=== PATIENT | female | born 1955 | race Caucasian/White ===

== ENCOUNTER 2019-02-19 13:06 | Observation (INO) ==
[2019-02-19] MEDS ORDERED: Isovue-370 500 ML BOTTLE IVP ONE (13:41)
--- NOTE | 2019-02-19 13:52 | Emergency Department Note ---
Disposition Clinical Impression: Rectal bleeding Disposition: Admitted As Inpatient Condition: Good Instructions: Rectal Bleeding (ED) Reasons to Return/Additional Instructions: You have an inflammation of the colon that is causing you to have rectal bleeding. He also had pain from her recent D/C and hysteroscopy. Your blood levels were not low enough to warrant transfusion. CT scans were performed to evaluate this. I spoke with the CUSTOMER SERVICE ADVISOR who does not think the bleeding is caused by the recent procedure. Please make a follow-up appointment for colonoscopy as soon as possible. I provided a prescription for a steroid as well as antibiotic. If you are unable to take your medications orally or unable to eat or drink please return the emergency Department please also return the emergency Department immediately if you develop worsening symptoms. Referrals: Zander Agustin DO [Primary Care Provider] - Forms: ED Satisfaction Letter Time of Disposition: 17:00 General Adult HPI - General Chief complaint: ED GI Bleed Stated complaint: rectal bleed Time Seen by Provider: 02/19/19 13:15 Source: patient Limitations: no limitations - History of Present Illness HPI Narrative: Patient is 63-year-old female history of hypertension, thyroid cancer, recent D&C hysteroscopy present in the emergency department with complaint of "rectal blood". Patient states that last night she had difficulty going to the bathroom and had to strain multiple times. The patient states eventually stool released which was followed by diarrhea and then followed by a significant amount of bright red blood. She states throughout the night she continued to have bright red blood per rectum when using the bathroom. She complains of crampy abdominal pain during this time. Patient states she had a D&C Hysteroscopy on 02/14/[address] Jimenez. Patient admits to fatigue, crampy abdominal pain and feels distended. Patient had no urinary complaints. Patient denies chest pain, shortness of breath, nausea, vomiting, headache, vision changes. Pain Scale: 5 - Related Data Home Medications Medication Instructions Recorded Confirmed ALPRAZolam [Xanax 0.5 MG Tablet] 0.5 mg PO BID PRN 09/03/15 02/19/19 Acyclovir [Zovirax] 400 mg PO BID 09/03/15 02/19/19 Calcium/Magnesium/Zinc 1 each PO QPM 09/03/15 02/19/19 [Ysjcauf-Asalgytev-Ogpy Tab] Estradiol [Estrace] 0.5 mg PO DAILY 09/03/15 02/19/19 Levothyroxine Sodium [Synthroid] 137 mcg PO QAM 09/03/15 02/19/19 Lisinopril [Zestril] 10 mg PO QPM 09/03/15 02/19/19 Omeprazole [PriLOSEC] 20 mg PO HS 09/03/15 02/19/19 Acetaminophen [Tylenol Arthritis] 1,300 mg PO Q8H PRN 02/14/19 02/19/19 Aspirin [Lo-Dose Aspirin EC] 81 mg PO DAILY 02/14/19 02/19/19 Calcitriol 0.5 mg PO DAILY 02/14/19 02/19/19 Cetirizine HCl [Allergy Relief] 10 mg PO DAILY 02/14/19 02/19/19 Inulin [Fiber Gummies] 2 gm PO DAILY 02/14/19 02/19/19 Loperamide [Imodium] 2 mg PO BID PRN 02/14/19 02/19/19 Medroxyprogesterone Acetate 10 mg PO QAM 02/14/19 02/19/19 [Provera] Tizanidine HCl 2 - 4 mg PO HS PRN 02/14/19 02/19/19 Trazodone HCl 100 mg PO HS 02/14/19 02/19/19 Previous Rx's Medication Instructions Recorded Ibuprofen [Motrin] 800 mg PO Q8HR PRN #30 tablet 02/14/19 Allergies Allergy/AdvReac Type Severity Reaction Status Date / Time codeine Allergy Gastrointestinal Verified 02/19/19 13:09 Upset acetaminophen [From Roxicet] AdvReac Nausea Verified 02/19/19 13:09 ciprofloxacin [From Cipro] AdvReac Hives Verified 02/19/19 13:09 citalopram AdvReac Headache Verified 02/19/19 13:09 clindamycin AdvReac Hives Verified 02/19/19 13:09 loratadine [From Claritin] AdvReac See Verified 02/19/19 13:09 Comments oxycodone [From Roxicet] AdvReac Gastrointestinal Verified 02/19/19 13:09 Upset Penicillins [PCN] AdvReac Hives Verified 02/19/19 13:09 pregabalin [From Lyrica] AdvReac Nausea Verified 02/19/19 13:09 tetracycline [Tetracycline] AdvReac Gastrointestinal Verified 02/19/19 13:09 Upset tramadol [From Ultracet] AdvReac Gastrointestinal Verified 02/19/19 13:09 Upset SURGICAL TAPE Allergy See Uncoded 02/19/19 13:09 Comments All systems ED: reviewed and negative except as stated. Review of Systems: As Per HPI Constitutional: Denies: fever, chills Eyes: Denies: eye pain, eye discharge ENT ED: Denies: ear pain, throat pain Cardiovascular: Denies: chest pain, palpitations, dyspnea on exertion Respiratory: Denies: cough, dyspnea, wheezes Gastrointestinal: Reports: abdominal pain, hematochezia. Denies: nausea Genitourinary: Denies: urgency, dysuria, frequency Musculoskeletal: Denies: back pain, neck pain Integumentary: Denies: rash, abrasion Neurological: Denies: headache, weakness Psychiatric: Denies: anxiety, depression Past Medical History - Past Medical History Attestation: Yes The following information was validated with the patient. Source: patient Medical history: Reports: cancer, GERD, hypertension Surgical history: Reports: appendectomy, other Psychiatric history: Reports: anxiety - Social History Smoking Status: Never smoker Smokeless Tobacco Status: No Alcohol use: Reports: none Drug use: Reports: none Physical Exam - General Limitations: no limitations General appearance: alert - Head Head exam: atraumatic, normocephalic - Eye Eye exam: Present: normal appearance, PERRL, EOMI. Absent: scleral icterus - ENT ENT exam: normal exam, normal oropharynx, mucous membranes moist - Neck Neck exam: Present: normal inspection, full ROM, trachea midline - Chest Chest inspection: Present: normal inspection, symmetric chest wall rise. Absent: tenderness - Respiratory Respiratory exam: Present: normal lung sounds bilaterally. Absent: respiratory distress, wheezes - Cardiovascular Cardiovascular exam: Present: regular rate, normal rhythm, normal heart sounds - Abdominal Exam Abdominal exam: Present: soft, tenderness Abdominal tenderness: Present: suprapubic, mild - Rectal Exam Alumni Secretary present during exam: Yes (Erika Phillips) Rectal exam: Present: normal inspection, normal rectal tone, heme (+) stool, bloody stool - Extremities Exam Extremities exam: Present: normal inspection - Back Exam Back exam: Absent: tenderness - Neurological Exam Neurological exam: Present: alert, oriented X3 - Psychiatric Psychiatric exam: Present: normal affect, normal mood - Skin Skin exam: Present: warm, dry Course Vital Signs Temperature 98.4 F 02/19/19 13:12 Pulse Rate 77 02/19/19 13:12 Respiratory Rate 15 02/19/19 13:12 Blood Pressure 122/74 02/19/19 13:12 O2 Sat by Pulse Oximetry 99 02/19/19 13:12 Temperature 98.4 F 02/19/19 13:12 Pulse Rate 83 02/19/19 20:30 Respiratory Rate 20 02/19/19 20:30 Blood Pressure 127/51 02/19/19 20:30 O2 Sat by Pulse Oximetry 97 02/19/19 20:30 Oxygen Delivery Oxygen Delivery Room Air Medical Decision Making - MDM Narrative Medical decision making narrative: 63-year-old female presents with rectal bleeding after a heavy bowel movement the night prior. Digital rectal exam was positive for blood. Lab evaluation and CT scans of the abdomen and pelvis reveal colitis. Patient is not anemic. This is likely a internal hemorrhoid versus polyp. She is scheduling a outpat ient colonoscopy. Patient decompensated while waiting for discharge. We will repeat a CBC as well as having more fluids with with plan for admission to the hospital. Patient's repeat CBC was in the fives. Repeat CBC was ordered as this did not make sense. The repeat was 6.4. 2 units of blood was ordered. So I reevaluated the patient clinically the patient did not appear to have a hemoglobin of 6.4. As when laying down and she was not tachycardic and normotensive. I asked her about the blood draws and found out that the blood draws were performed adjacent to an IV site. I repleted a hemoglobin and hematocrit and asked the lab to draw from the other arm. The results from this hemoglobin and hematocrit were 12.4. I canceled the 2 units of blood. And informed the hospitalist. Spoke with Dr. Rice the endoscopist electric motor control assembler. He agreed with the management and will consult on the patient when she is admitted. Hospice agreed to admit the patient - Medical Records Medical records reviewed: Yes I reviewed the patient's medical records. - Lab Data Lab results reviewed: Yes I reviewed the patient's lab results. Result diagrams: 02/19/19 20:14 02/19/19 13:18 Lab Results 02/19/19 02/19/19 02/19/19 Range/Units 13:18 13:18 13:18 WBC 14.2 H (4.3-11.1) K/mcL RBC 4.76 (3.82-4.97) M/mcL Hgb 13.5 (11.5-15.4) g/dL Hct 41.0 (35.3-44.9) % MCV 86.1 (83.0-100.0) fL MCH 28.4 (28.0-33.3) pg MCHC 32.9 (31.6-35.5) g/dL RDW 13.2 (11.5-14.5) % Plt Count 373 (140-400) K/mcL MPV 10.6 (9.4-12.4) fL Immature Gran % 0.5 (0-4) % Seg Neutrophils % 76.7 % Lymphocytes % 14.8 % Monocytes % 7.7 % Eosinophils % 0.1 % Basophils % 0.2 % Neutrophils # 10.9 H (1.6-8.9) K/mcL Lymphocytes # 2.1 (0.6-4.6) K/mcL Monocytes # 1.1 (0.0-1.3) K/mcL Eosinophils # 0.0 (0.0-0.6) K/mcL Basophils # 0.0 (0.0-0.2) K/mcL PT (9.4-12.1) Seconds INR Sodium 140 (136-145) mEq/L Potassium 3.6 (3.5-5.1) mEq/L Chloride 103 (98-107) mEq/L Carbon Dioxide 26 (23-29) mEq/L BUN 24 H (8-23) mg/dL Creatinine 0.91 (0.60-1.20) mg/dL Est GFR ( Amer) > 60 (> 60) Est GFR (Non-Af Amer) > 60 (> 60) BUN/Creatinine Ratio 26 (6-26) Glucose 109 H (70-105) mg/dL Calculated Osmolality 295 (280-300) Lactic Acid (0.5-2.2) mmol/L Calcium 9.2 (8.6-10.3) mg/dL Stool Occult Bld Scrn (Negative) Blood Type A POSITIVE Antibody Screen NEGATIVE Crossmatch See Detail 02/19/19 02/19/19 02/19/19 Range/Units 13:18 13:40 15:50 WBC (4.3-11.1) K/mcL RBC (3.82-4.97) M/mcL Hgb (11.5-15.4) g/dL Hct (35.3-44.9) % MCV (83.0-100.0) fL MCH (28.0-33.3) pg MCHC (31.6-35.5) g/dL RDW (11.5-14.5) % Plt Count (140-400) K/mcL MPV (9.4-12.4) fL Immature Gran % (0-4) % Seg Neutrophils % % Lymphocytes % % Monocytes % % Eosinophils % % Basophils % % Neutrophils # (1.6-8.9) K/mcL Lymphocytes # (0.6-4.6) K/mcL Monocytes # (0.0-1.3) K/mcL Eosinophils # (0.0-0.6) K/mcL Basophils # (0.0-0.2) K/mcL PT 12.7 H (9.4-12.1) Seconds INR 1.1 Sodium (136-145) mEq/L Potassium (3.5-5.1) mEq/L Chloride (98-107) mEq/L Carbon Dioxide (23-29) mEq/L BUN (8-23) mg/dL Creatinine (0.60-1.20) mg/dL Est GFR ( Amer) (> 60) Est GFR (Non-Af Amer) (> 60) BUN/Creatinine Ratio (6-26) Glucose (70-105) mg/dL Calculated Osmolality (280-300) Lactic Acid 0.8 (0.5-2.2) mmol/L Calcium (8.6-10.3) mg/dL Stool Occult Bld Scrn Positive A (Negative) Blood Type Antibody Screen Crossmatch 02/19/19 02/19/19 Range/Units 18:40 20:14 WBC 7.4 (4.3-11.1) K/mcL RBC 2.27 L (3.82-4.97) M/mcL Hgb 6.4 L D 12.4 D (11.5-15.4) g/dL Hct 20.4 L 37.9 (35.3-44.9) % MCV 89.9 (83.0-100.0) fL MCH 28.2 (28.0-33.3) pg MCHC 31.4 L (31.6-35.5) g/dL RDW 13.2 (11.5-14.5) % Plt Count 171 D (140-400) K/mcL MPV 10.7 (9.4-12.4) fL Immature Gran % 0.3 (0-4) % Seg Neutrophils % 82.8 % Lymphocytes % 11.3 % Monocytes % 5.4 % Eosinophils % 0.1 % Basophils % 0.1 % Neutrophils # 6.1 (1.6-8.9) K/mcL Lymphocytes # 0.8 (0.6-4.6) K/mcL Monocytes # 0.4 (0.0-1.3) K/mcL Eosinophils # 0.0 (0.0-0.6) K/mcL Basophils # 0.0 (0.0-0.2) K/mcL PT (9.4-12.1) Seconds INR Sodium (136-145) mEq/L Potassium (3.5-5.1) mEq/L Chloride (98-107) mEq/L Carbon Dioxide (23-29) mEq/L BUN (8-23) mg/dL Creatinine (0.60-1.20) mg/dL Est GFR ( Amer) (> 60) Est GFR (Non-Af Amer) (> 60) BUN/Creatinine Ratio (6-26) Glucose (70-105) mg/dL Calculated Osmolality (280-300) Lactic Acid (0.5-2.2) mmol/L Calcium (8.6-10.3) mg/dL Stool Occult Bld Scrn (Negative) Blood Type Antibody Screen Crossmatch - Radiology Data Radiology results reviewed: Yes I reviewed the patient's radiology results. Abdomen/Pelvis CT 02/19/19 13:41 IMPRESSION: Transverse and left colonic wall thickening with pericolonic inflammation representing nonspecific colitis. Complex indeterminate fluid distention of the endometrial cavity. Recommend pelvic ultrasound imaging. Hiatal hernia. Cholelithiasis. D/ / 02/19/2019 15:42:26 Fransico Benedict MD / balwinder Interpreting Provider: Fransico Benedict MD
[2019-02-19 13:55] LABS: Basophils % 0.2 %; Eosinophils % 0.1 %; Hemoglobin 13.5 g/dL (11.5-15.4); Immature Granulocytes % 0.5 % (0-4); Lymphocytes # 2.1 K/mcL (0.6-4.6); Lymphocytes % 14.8 %; Mean Corpuscular HGB Conc 32.9 g/dL (31.6-35.5); Mean Corpuscular Hemoglobin 28.4 pg (28.0-33.3); Mean Corpuscular Volume 86.1 fL (83.0-100.0); Mean Platelet Volume 10.6 fL (9.4-12.4); Monocytes # 1.1 K/mcL (0.0-1.3); Monocytes % 7.7 %; Neutrophils # 10.9 K/mcL (1.6-8.9); Platelet Count 373 K/mcL (140-400); Red Blood Count 4.76 M/mcL (3.82-4.97); Red Cell Distribution Width 13.2 % (11.5-14.5); Segmented Neutrophils % 76.7 %; White Blood Count 14.2 K/mcL (4.3-11.1)
[2019-02-19 14:13] LABS: BUN/Creatinine Ratio 26 (6-26); Blood Urea Nitrogen 24 mg/dL (8-23); Calcium 9.2 mg/dL (8.6-10.3); Carbon Dioxide 26 mEq/L (23-29); Chloride 103 mEq/L (98-107); Glucose 109 mg/dL (70-105); Osmolality,Calculated 295 (280-300); Potassium 3.6 mEq/L (3.5-5.1); Sodium 140 mEq/L (136-145); eGFR For African Americans > 60 (> 60); eGFR For Non-African Americans > 60 (> 60)
[2019-02-19 15:03] LABS: INR 1.1; Prothrombin Time 12.7 Seconds (9.4-12.1)
[2019-02-19] MEDS ORDERED: MetroNIDAZOLE 500 MG/100 ML 500 MG/100 ML BAG IVPB ONE (15:56)
[2019-02-19] MEDS ORDERED: ALPRAZolam 0.5 MG TABLET PO ONE (15:56)
--- NOTE | 2019-02-19 16:15 | Emergency Department Note ---
Disposition Clinical Impression: Rectal bleeding Disposition: Admitted As Inpatient Condition: Good Instructions: Rectal Bleeding (ED) Reasons to Return/Additional Instructions: You have an inflammation of the colon that is causing you to have rectal bleeding. He also had pain from her recent D/C and hysteroscopy. Your blood levels were not low enough to warrant transfusion. CT scans were performed to evaluate this. I spoke with the ROUTER OPERATOR who does not think the bleeding is caused by the recent procedure. Please make a follow-up appointment for colonoscopy as soon as possible. I provided a prescription for a steroid as well as antibiotic. If you are unable to take your medications orally or unable to eat or drink please return the emergency Department please also return the emergency Department immediately if you develop worsening symptoms. Prescriptions: metroNIDAZOLE [Flagyl] 500 mg PO TID 7 Days #21 tablet predniSONE [Prednisone] 50 mg PO QDPC 5 Days #5 tablet Referrals: Zander Agustin DO [Primary Care Provider] - Forms: ED Satisfaction Letter Time of Disposition: 18:17 General Adult HPI - General Chief complaint: ED GI Bleed Stated complaint: rectal bleed Time Seen by Provider: 02/19/19 13:15 Source: patient Limitations: no limitations - History of Present Illness Pain Scale: 5 - Related Data Home Medications Medication Instructions Recorded Confirmed ALPRAZolam [Xanax 0.5 MG Tablet] 0.5 mg PO BID PRN 09/03/15 02/14/19 Acyclovir [Zovirax] 400 mg PO BID 09/03/15 02/14/19 Calcium/Magnesium/Zinc 1 each PO QPM 09/03/15 02/14/19 [Tgxufim-Awbdxoqqj-Xkov Tab] Estradiol [Estrace] 0.5 mg PO DAILY 09/03/15 02/14/19 Levothyroxine Sodium [Synthroid] 137 mcg PO QAM 09/03/15 02/14/19 Lisinopril [Zestril] 10 mg PO QPM 09/03/15 02/14/19 Omeprazole [PriLOSEC] 20 mg PO HS 09/03/15 02/14/19 Acetaminophen [Tylenol Arthritis] 1,300 mg PO Q8H PRN 02/14/19 02/14/19 Aspirin [Lo-Dose Aspirin EC] 81 mg PO DAILY 02/14/19 02/14/19 Calcitriol 0.5 mg PO DAILY 02/14/19 02/14/19 Cetirizine HCl [Allergy Relief] 10 mg PO DAILY 02/14/19 02/14/19 Inulin [Fiber Gummies] 2 gm PO DAILY 02/14/19 02/14/19 Loperamide [Imodium] 2 mg PO BID PRN 02/14/19 02/14/19 Medroxyprogesterone Acetate 10 mg PO QAM 02/14/19 02/14/19 [Provera] Tizanidine HCl 2 - 4 mg PO HS PRN 02/14/19 02/14/19 Trazodone HCl 100 mg PO HS 02/14/19 02/14/19 Previous Rx's Medication Instructions Recorded Ibuprofen [Motrin] 800 mg PO Q8HR PRN #30 tablet 02/14/19 metroNIDAZOLE [Flagyl] 500 mg PO TID 7 Days #21 tablet 02/19/19 predniSONE [Prednisone] 50 mg PO QDPC 5 Days #5 tablet 02/19/19 Allergies Allergy/AdvReac Type Severity Reaction Status Date / Time codeine Allergy Gastrointestinal Verified 02/19/19 13:09 Upset acetaminophen [From Roxicet] AdvReac Nausea Verified 02/19/19 13:09 ciprofloxacin [From Cipro] AdvReac Hives Verified 02/19/19 13:09 citalopram AdvReac Headache Verified 02/19/19 13:09 clindamycin AdvReac Hives Verified 02/19/19 13:09 loratadine [From Claritin] AdvReac See Verified 02/19/19 13:09 Comments oxycodone [From Roxicet] AdvReac Gastrointestinal Verified 02/19/19 13:09 Upset Penicillins [PCN] AdvReac Hives Verified 02/19/19 13:09 pregabalin [From Lyrica] AdvReac Nausea Verified 02/19/19 13:09 tetracycline [Tetracycline] AdvReac Gastrointestinal Verified 02/19/19 13:09 Upset tramadol [From Ultracet] AdvReac Gastrointestinal Verified 02/19/19 13:09 Upset SURGICAL TAPE Allergy See Uncoded 02/19/19 13:09 Comments Constitutional: Denies: fever, chills Eyes: Denies: eye pain, eye discharge ENT ED: Denies: ear pain, throat pain Cardiovascular: Denies: chest pain, palpitations, dyspnea on exertion Respiratory: Denies: cough, dyspnea, wheezes Gastrointestinal: Reports: abdominal pain, hematochezia. Denies: nausea Genitourinary: Denies: urgency, dysuria, frequency Musculoskeletal: Denies: back pain, neck pain Integumentary: Denies: rash, abrasion Neurological: Denies: headache, weakness Psychiatric: Denies: anxiety, depression Past Medical History - Past Medical History Medical history: Reports: cancer, GERD, hypertension Surgical history: Reports: appendectomy, other Psychiatric history: Reports: anxiety - Social History Smoking Status: Never smoker Smokeless Tobacco Status: No Alcohol use: Reports: none Drug use: Reports: none Physical Exam - General Limitations: no limitations General appearance: alert Course - Reevaluation(s) Reevaluation #1: patient is having worsening rectal bleeding while in the department and is symptomatic with it. We will admit to medicine for her GI bleed now. Time: 18:17 Vital Signs Temperature 98.4 F 02/19/19 13:12 Pulse Rate 77 02/19/19 13:12 Respiratory Rate 15 02/19/19 13:12 Blood Pressure 122/74 02/19/19 13:12 O2 Sat by Pulse Oximetry 99 02/19/19 13:12 Temperature 98.4 F 02/19/19 13:12 Pulse Rate 88 02/19/19 16:33 Respiratory Rate 20 02/19/19 16:33 Blood Pressure 151/117 02/19/19 16:33 O2 Sat by Pulse Oximetry 100 02/19/19 16:33 Oxygen Delivery Oxygen Delivery Room Air Medical Decision Making - Lab Data Result diagrams: 02/19/19 13:18 02/19/19 13:18 Lab Results 02/19/19 02/19/19 02/19/19 Range/Units 13:18 13:18 13:18 WBC 14.2 H (4.3-11.1) K/mcL RBC 4.76 (3.82-4.97) M/mcL Hgb 13.5 (11.5-15.4) g/dL Hct 41.0 (35.3-44.9) % MCV 86.1 (83.0-100.0) fL MCH 28.4 (28.0-33.3) pg MCHC 32.9 (31.6-35.5) g/dL RDW 13.2 (11.5-14.5) % Plt Count 373 (140-400) K/mcL MPV 10.6 (9.4-12.4) fL Immature Gran % 0.5 (0-4) % Seg Neutrophils % 76.7 % Lymphocytes % 14.8 % Monocytes % 7.7 % Eosinophils % 0.1 % Basophils % 0.2 % Neutrophils # 10.9 H (1.6-8.9) K/mcL Lymphocytes # 2.1 (0.6-4.6) K/mcL Monocytes # 1.1 (0.0-1.3) K/mcL Eosinophils # 0.0 (0.0-0.6) K/mcL Basophils # 0.0 (0.0-0.2) K/mcL PT (9.4-12.1) Seconds INR Sodium 140 (136-145) mEq/L Potassium 3.6 (3.5-5.1) mEq/L Chloride 103 (98-107) mEq/L Carbon Dioxide 26 (23-29) mEq/L BUN 24 H (8-23) mg/dL Creatinine 0.91 (0.60-1.20) mg/dL Est GFR ( Amer) > 60 (> 60) Est GFR (Non-Af Amer) > 60 (> 60) BUN/Creatinine Ratio 26 (6-26) Glucose 109 H (70-105) mg/dL Calculated Osmolality 295 (280-300) Lactic Acid (0.5-2.2) mmol/L Calcium 9.2 (8.6-10.3) mg/dL Stool Occult Bld Scrn (Negative) Blood Type A POSITIVE Antibody Screen NEGATIVE 02/19/19 02/19/19 02/19/19 Range/Units 13:18 13:40 15:50 WBC (4.3-11.1) K/mcL RBC (3.82-4.97) M/mcL Hgb (11.5-15.4) g/dL Hct (35.3-44.9) % MCV (83.0-100.0) fL MCH (28.0-33.3) pg MCHC (31.6-35.5) g/dL RDW (11.5-14.5) % Plt Count (140-400) K/mcL MPV (9.4-12.4) fL Immature Gran % (0-4) % Seg Neutrophils % % Lymphocytes % % Monocytes % % Eosinophils % % Basophils % % Neutrophils # (1.6-8.9) K/mcL Lymphocytes # (0.6-4.6) K/mcL Monocytes # (0.0-1.3) K/mcL Eosinophils # (0.0-0.6) K/mcL Basophils # (0.0-0.2) K/mcL PT 12.7 H (9.4-12.1) Seconds INR 1.1 Sodium (136-145) mEq/L Potassium (3.5-5.1) mEq/L Chloride (98-107) mEq/L Carbon Dioxide (23-29) mEq/L BUN (8-23) mg/dL Creatinine (0.60-1.20) mg/dL Est GFR ( Amer) (> 60) Est GFR (Non-Af Amer) (> 60) BUN/Creatinine Ratio (6-26) Glucose (70-105) mg/dL Calculated Osmolality (280-300) Lactic Acid 0.8 (0.5-2.2) mmol/L Calcium (8.6-10.3) mg/dL Stool Occult Bld Scrn Positive A (Negative) Blood Type Antibody Screen Attestation Statement - Attestation Attestation: I reviewed the residents documentation and agree with the residents assessment and plan of care. I have personally had face to face time with the patient. (Brief History, Brief Exam, and MDM) I personally supervised and was present for the ford/critical portions of the following procedures completed by the resident: EKG 63 year old female presents to the ED with complaints of rectal bleeding which was bright red without clots and collected on the stool itself. Sophia gets routine colonoscopies secondaary to family history of colon cancer of polyps. Patricia is due for another colonoscpy in 1-2 years. Patient has a stable hemobglobin and stable vitals and will not require blood transfusions at this time. ABCT shows nonspecific left sided colitis. Lactic is pending. WE will dose with flagyl at this time and pending on lactic acid will help determine if she is a candiddate for going home vs admission
[2019-02-19] MEDS ORDERED: Ondansetron 4 MG/2 ML VIAL IVP ONE (16:32)
[2019-02-19] MEDS ORDERED: 0.9 % Sodium Chloride 1,000 ML IVC ONE (18:24)
[2019-02-19 19:26] LABS: Basophils % 0.1 %; Eosinophils % 0.1 %; Hematocrit 20.4 % (35.3-44.9); Hemoglobin 6.4 g/dL (11.5-15.4); Immature Granulocytes % 0.3 % (0-4); Lymphocytes # 0.8 K/mcL (0.6-4.6); Lymphocytes % 11.3 %; Mean Corpuscular HGB Conc 31.4 g/dL (31.6-35.5); Mean Corpuscular Hemoglobin 28.2 pg (28.0-33.3); Mean Corpuscular Volume 89.9 fL (83.0-100.0); Mean Platelet Volume 10.7 fL (9.4-12.4); Monocytes # 0.4 K/mcL (0.0-1.3); Monocytes % 5.4 %; Neutrophils # 6.1 K/mcL (1.6-8.9); Platelet Count 171 K/mcL (140-400); Red Blood Count 2.27 M/mcL (3.82-4.97); Red Cell Distribution Width 13.2 % (11.5-14.5); Segmented Neutrophils % 82.8 %; White Blood Count 7.4 K/mcL (4.3-11.1)
[2019-02-19] MEDS ORDERED: 0.9 % Sodium Chloride 1,000 ML ONE (19:37)
[2019-02-19 20:25] LABS: Hematocrit 37.9 % (35.3-44.9)
[2019-02-19 20:28] LABS: Hemoglobin 12.4 g/dL (11.5-15.4)
[2019-02-19] MEDS ORDERED: Ondansetron 4 MG/2 ML VIAL IVP PRN (20:48)
--- NOTE | 2019-02-19 21:06 | Internal Med History&Physical ---
Date of Encounter: 02/19/19 Time of Encounter: 21:03 Internal Medicine - H&P: HPI Chief complaint: rectal bleed Admitted From: Home Plans for Post Hospital Care: Home History of present illness: Kimberly Howard is a 63 year old woman with hypertension, prior history of thyroid cancer and recently underwent a D&C hysteroscopy 4 days ago due to postmenopausal bleeding and endometrial thickening. She presents to the ER today for new onset rectal bleeding that started yesterday after a short period of constipation and bloat during the day. In the evening she then had a large volume loose bowel movement that was followed by bright red blood at the end. This was followed by cramping abdominal pain and nausea. The bleeding episodes continued overnight and into today with ongoing abdominal pain and has been feeling cold and fatigued. She denies fever however. She was evaluated in the ER and seen to be clinically and hemodynamically stable and obtain an initial hemoglobin of 13.5. CT scan showed signs of colitis. She was to be discharged home with outpatient follow-up and prescribed a course of metronidazole and prednisone. However prior to her discharge she had another large volume of bright red blood per rectum, becoming somewhat hypotensive and tachycardic and notably pale. She stabilized with fluids. Repeat hemoglobin was done and it was seen to be 6.4. She was referred for admission. Upon my assessment she confirms that the repeat blood was drawn from a site right above her IV saline infusion site so I requested a repeat CBC be done on the other arm and this was 12.4 which is more plausible. Of note, she reports undergoing colonoscopies every 5 years due to a family history and she has been clear. Vitals: Reviewed General: Well-developed white woman lying comfortably in bed in no acute distress. Skin: Warm, pale and dry. HEENT: Moist mucous membranes. No conjunctivae pallor. Neck: No lymphadenopathy. No JVD. No carotid bruits. No palpable thyroid. Chest: Normal thoracic expansion. Normal breath sounds. Clear to auscultation. Heart: Normal S1 & S2; rhythmic. No rubs or murmurs. Abdomen: Non-distended, soft and mild tender to palpation in the right lower quadrant and suprapubic region with no peritoneal reaction. Extremities: No clubbing, cyanosis or edema. No calf tenderness. Normal distal pulses. Neurological: Awake, alert and oriented to person, place and time. No focal deficits. Psych: Affect appropriate. Assessment/Plan 1. Lower GI bleed: Seemingly secondary to colitis, unlikely infectious in etiology and low concern for ischemia given the unremarkable lactate and mild symptoms. I spoke with GI who equally evaluated the patient and we agree on the treatment plan of bowel rest and fluids for now. If symptoms evolve tomorrow, surgery may be contacted and perhaps antimicrobials started. No indication for c olonoscopy at this time. Hold aspirin and NSAIDs. 2. Hypothyroidism: Post-thyroidectomy. Clinically euthyroid. Continue levothyroxine. 3. Hypertension: Well controlled BP. On Lisinopril at home. 4. DVT prophylaxis: Antiembolic stockings ordered. Past Med Surg Social Fam HX - Past Medical History Medical history: cancer, GERD, hypertension Additional medical history: cancer thyroid. ibs Psychiatric history: anxiety - Past Surgical History Surgical History: appendectomy, other Additional surgical history: dc. thyroid removal. 7 out of nine lymph nodes removed from clavicle area. appendectomy. LAP ONEIL. colonoscopy - Social History Smoking Status: Never smoker Smokeless Tobacco Status: No Alcohol use: none Drug use: none Internal Medicine - H&P: Meds ALPRAZolam [Xanax 0.5 MG Tablet] 0.5 mg PO BID PRN 09/03/15 [History] Acyclovir [Zovirax] 400 mg PO BID 09/03/15 [History] Calcium/Magnesium/Zinc [Iyfgsby-Uvqrwlkvn-Esdf Tab] 1 each PO QPM 09/03/15 [History] Estradiol [Estrace] 0.5 mg PO DAILY 09/03/15 [History] Levothyroxine Sodium [Synthroid] 137 mcg PO QAM 09/03/15 [History] Lisinopril [Zestril] 10 mg PO QPM 09/03/15 [History] Omeprazole [PriLOSEC] 20 mg PO HS 09/03/15 [History] Acetaminophen [Tylenol Arthritis] 1,300 mg PO Q8H PRN 02/14/19 [History] Aspirin [Lo-Dose Aspirin EC] 81 mg PO DAILY 02/14/19 [History] Calcitriol 0.5 mg PO DAILY 02/14/19 [History] Cetirizine HCl [Allergy Relief] 10 mg PO DAILY 02/14/19 [History] Ibuprofen [Motrin] 800 mg PO Q8HR PRN #30 tablet 02/14/19 [Rx] Inulin [Fiber Gummies] 2 gm PO DAILY 02/14/19 [History] Loperamide [Imodium] 2 mg PO BID PRN 02/14/19 [History] Medroxyprogesterone Acetate [Provera] 10 mg PO QAM 02/14/19 [History] Tizanidine HCl 2 - 4 mg PO HS PRN 02/14/19 [History] Trazodone HCl 100 mg PO HS 02/14/19 [History] Allergy/AdvReac Type Severity Reaction Status Date / Time codeine Allergy Gastrointestinal Verified 02/19/19 13:09 Upset acetaminophen [From Roxicet] AdvReac Nausea Verified 02/19/19 13:09 ciprofloxacin [From Cipro] AdvReac Hives Verified 02/19/19 13:09 citalopram AdvReac Headache Verified 02/19/19 13:09 clindamycin AdvReac Hives Verified 02/19/19 13:09 loratadine [From Claritin] AdvReac See Verified 02/19/19 13:09 Comments oxycodone [From Roxicet] AdvReac Gastrointestinal Verified 02/19/19 13:09 Upset Penicillins [PCN] AdvReac Hives Verified 02/19/19 13:09 pregabalin [From Lyrica] AdvReac Nausea Verified 02/19/19 13:09 tetracycline [Tetracycline] AdvReac Gastrointestinal Verified 02/19/19 13:09 Upset tramadol [From Ultracet] AdvReac Gastrointestinal Verified 02/19/19 13:09 Upset SURGICAL TAPE Allergy See Uncoded 02/19/19 13:09 Comments All Systems PM: A 10-system review of systems was performed and is negative for pertinent findings except as documented above in the HPI. Family history reviewed and found non-contributory. - Constitutional Vitals: Temp Pulse Resp BP Pulse Ox 98.4 F 83 20 127/51 97 02/19/19 13:12 02/19/19 20:30 02/19/19 20:30 02/19/19 20:30 02/19/19 20:30 Exam: . Internal Med - H&P Results - Labs CBC & Chem 7: 02/19/19 20:14 02/19/19 13:18 Labs: Short CBC 02/19/19 02/19/19 02/19/19 Range/Units 13:18 18:40 20:14 WBC 14.2 H 7.4 (4.3-11.1) K/mcL Hgb 13.5 6.4 L D 12.4 D (11.5-15.4) g/dL Hct 41.0 20.4 L 37.9 (35.3-44.9) % Plt Count 373 171 D (140-400) K/mcL Neutrophils # 10.9 H 6.1 (1.6-8.9) K/mcL BMP 02/19/19 13:18 Sodium 140 Potassium 3.6 Chloride 103 Carbon Dioxide 26 BUN 24 H Creatinine 0.91 Glucose 109 H Calcium 9.2 - Impressions ITS Impressions Abdomen/Pelvis CT 02/19/19 13:41 IMPRESSION: Transverse and left colonic wall thickening with pericolonic inflammation representing nonspecific colitis. Complex indeterminate fluid distention of the endometrial cavity. Recommend pelvic ultrasound imaging. Hiatal hernia. Cholelithiasis. D/ / 02/19/2019 15:42:26 Fransico Benedict MD / [email or web address] Interpreting Provider: Fransico Benedict MD - Time Spent With Patient Total time spent is greater than 50% in coordination of care (as documented) at patient's floor/unit and/or counseling patient:
[2019-02-19] MEDS: Ringers Solution, Lactated 1,000 ML IVC SCH ×2 (21:16→23:30)
[2019-02-20 05:08] LABS: Hematocrit 35.2 % (35.3-44.9); Hemoglobin 11.5 g/dL (11.5-15.4)
[2019-02-20] MEDS ORDERED: Ketorolac 15 MG/ML VIAL IVP PRN (06:24)
[2019-02-20] MEDS ORDERED: Ringers Solution, Lactated 1,000 ML IVC ONE (12:25)
--- NOTE | 2019-02-20 13:04 | Discharge Summary ---
Date of Encounter: 02/20/19 Time of Encounter: 13:02 - Discharge Diagnosis (1) Colitis Priority: Primary Status: Acute (2) Rectal bleeding Priority: Secondary Status: Acute (3) Hypertension Priority: Secondary Status: Acute Qualifiers: Hypertension type: essential hypertension Qualified Code(s): I10 - Essential (primary) hypertension Hospital course: Ms. Howard is a 63 year old female with no history of prior GI bleeding p resented with diarrhea and bright red blood per rectum in the setting of his CT imaging with evidence of nonspecific colitis. Admitted for IVF and supportive care until bleeding stabilized. Hemoglobin was stable throughout hospital stay. Discussed case with GI who recommended outpatient colonoscopy and bowel rest. Patient improved and was sent home on a bland diet and instructed to follow up w [facility] for colonoscopy in one month. - Discharge Medications Prescriptions: Continued Lisinopril [Zestril] 10 mg PO QPM Estradiol [Estrace] 0.5 mg PO DAILY Omeprazole [PriLOSEC] 20 mg PO HS ALPRAZolam [Xanax 0.5 MG Tablet] 0.5 mg PO BID PRN PRN Reason: Anxiety Levothyroxine Sodium [Synthroid] 137 mcg PO QAM Calcium/Magnesium/Zinc [Ivwogkg-Dqwcszsxn-Dzth Tab] 1 each PO QPM Acyclovir [Zovirax] 400 mg PO BID Acetaminophen [Tylenol Arthritis] 1,300 mg PO Q8H PRN PRN Reason: Pain Aspirin [Lo-Dose Aspirin EC] 81 mg PO DAILY Calcitriol 0.5 mg PO DAILY Cetirizine HCl [Allergy Relief] 10 mg PO DAILY Inulin [Fiber Gummies] 2 gm PO DAILY Loperamide [Imodium] 2 mg PO BID PRN PRN Reason: Diarrhea Medroxyprogesterone Acetate [Provera] 10 mg PO QAM Tizanidine HCl 2 - 4 mg PO HS PRN PRN Reason: Muscle Spasm Trazodone HCl 100 mg PO HS Discontinued Ibuprofen [Motrin] 800 mg PO Q8HR PRN #30 tablet PRN Reason: Pain Home Medications: ALPRAZolam [Xanax 0.5 MG Tablet] 0.5 mg PO BID PRN 09/03/15 [History] Acyclovir [Zovirax] 400 mg PO BID 09/03/15 [History] Calcium/Magnesium/Zinc [Wixdihc-Rarwjkrkd-Qkry Tab] 1 each PO QPM 09/03/15 [History] Estradiol [Estrace] 0.5 mg PO DAILY 09/03/15 [History] Levothyroxine Sodium [Synthroid] 137 mcg PO QAM 09/03/15 [History] Lisinopril [Zestril] 10 mg PO QPM 09/03/15 [History] Omeprazole [PriLOSEC] 20 mg PO HS 09/03/15 [History] Acetaminophen [Tylenol Arthritis] 1,300 mg PO Q8H PRN 02/14/19 [History] Aspirin [Lo-Dose Aspirin EC] 81 mg PO DAILY 02/14/19 [History] Calcitriol 0.5 mg PO DAILY 02/14/19 [History] Cetirizine HCl [Allergy Relief] 10 mg PO DAILY 02/14/19 [History] Inulin [Fiber Gummies] 2 gm PO DAILY 02/14/19 [History] Loperamide [Imodium] 2 mg PO BID PRN 02/14/19 [History] Medroxyprogesterone Acetate [Provera] 10 mg PO QAM 02/14/19 [History] Tizanidine HCl 2 - 4 mg PO HS PRN 02/14/19 [History] Trazodone HCl 100 mg PO HS 02/14/19 [History] Allergies/Adverse Reactions: Allergy/AdvReac Type Severity Reaction Status Date / Time codeine Allergy Gastrointestinal Verified 02/19/19 13:09 Upset acetaminophen [From Roxicet] AdvReac Nausea Verified 02/19/19 13:09 ciprofloxacin [From Cipro] AdvReac Hives Verified 02/19/19 13:09 citalopram AdvReac Headache Verified 02/19/19 13:09 clindamycin AdvReac Hives Verified 02/19/19 13:09 loratadine [From Claritin] AdvReac See Verified 02/19/19 13:09 Comments oxycodone [From Roxicet] AdvReac Gastrointestinal Verified 02/19/19 13:09 Upset Penicillins [PCN] AdvReac Hives Verified 02/19/19 13:09 pregabalin [From Lyrica] AdvReac Nausea Verified 02/19/19 13:09 tetracycline [Tetracycline] AdvReac Gastrointestinal Verified 02/19/19 13:09 Upset tramadol [From Ultracet] AdvReac Gastrointestinal Verified 02/19/19 13:09 Upset SURGICAL TAPE Allergy See Uncoded 02/19/19 13:09 Comments Date of admission: 02/19/19 21:41 Primary care physician: Zander Agustin - Constitutional Vitals: Temp Pulse Resp BP Pulse Ox 98.2 F 72 17 98/56 95 02/20/19 07:22 02/20/19 07:22 02/20/19 07:22 02/20/19 07:22 02/20/19 07:22 Exam: General: Ill-appearing and in no acute distress HEENT: No erythema of posterior pharynx. No exudates. Lymphatics: No mandibular or cervical lymphadenopathy Cardiovascular: RRR. No murmurs. No chest wall tenderness. Lungs: Clear to auscelltation bilaterally. Regular chest rise. Abdomen: Non-tender. No rebound or gaurding. Nl bowel sounds. Extremities: No edema. 2+ pulses radial and pedal pulses Skin: No rahses, abrasions, or contusions. Nl cap refill. Psych: Nl attention. A&Ox3 Neuro: director service II-XII intact. 5/5 strength. Sensation to light touch and pinprick intact. Patient seen [id number] over multiple encounters before discharge and all questions were answered - Patient Status Disposition: Home, Self-Care Functional capacity at discharge: independent ambulation Overall status at discharge: patient is progressing back to baseline - Discharge Instructions Follow Up With: Zander Agustin DO [Primary Care Provider] - - Diet and Activity Activity: resume usual activities as tolerated
[2019-02-20] MEDS ORDERED: Acetaminophen 325 MG TABLET PO ONE (23:20)
[2019-02-21] MEDS ORDERED: Acetaminophen 325 MG TABLET PO ONE (05:15)
[2019-02-21 07:25] VITALS: BP 80/40
[2019-02-21 08:54] LABS: Hematocrit 35.8 % (35.3-44.9); Hemoglobin 11.7 g/dL (11.5-15.4); Mean Corpuscular HGB Conc 32.7 g/dL (31.6-35.5); Mean Corpuscular Hemoglobin 28.5 pg (28.0-33.3); Mean Corpuscular Volume 87.3 fL (83.0-100.0); Mean Platelet Volume 10.4 fL (9.4-12.4); Platelet Count 272 K/mcL (140-400)
--- NOTE | 2019-02-21 09:43 | Internal Med Progress Note ---
Hospitalist Progress Note - Encounter Date of Encounter: 02/21/19 Time of Encounter: 09:31 - Subjective Interval History: Patient was still passing blood clots yesterday so uncomfortable with going home. Recorded blood pressure low this morning but rechecked and was normal. Patient has been up moving around without lightheadedness or dizziness. Blood clots have since mostly resolved. Hemoglobin stable. - Exam Vitals: Temp Pulse Resp BP Pulse Ox 97.8 F 98 16 80/40 94 02/21/19 07:20 02/21/19 07:20 02/21/19 07:20 02/21/19 07:20 02/21/19 07:20 Exam: General: Ill-appearing and in no acute distress HEENT: No erythema of posterior pharynx. No exudates. Lymphatics: No mandibular or cervical lymphadenopathy Cardiovascular: RRR. No murmurs. No chest wall tenderness. Lungs: Clear to auscelltation bilaterally. Regular chest rise. Abdomen: Non-tender. No rebound or gaurding. Nl bowel sounds. Extremities: No edema. 2+ pulses radial and pedal pulses Skin: No rahses, abrasions, or contusions. Nl cap refill. Psych: Nl attention. A&Ox3 Neuro: dispute specialist II-XII intact. 5/5 strength. Sensation to light touch and pinprick intact. Patient seen [id number] over multiple encounters before discharge and all questions were answered - Assessment and Plan (1) Colitis Current Visit: Yes Status: Acute (2) Rectal bleeding Current Visit: Yes Status: Acute (3) Hypertension Current Visit: Yes Status: Acute - Summary of Assessment and Plan Summary of Assessment and Plan: Patient ready to discharge today. Diagnosis is nonspecific episode of colitis. Very mild symptoms so did not discharge her on antibiotics this was not recommended by GI. Ischemic etiology, will recommend her to continue with aspirin therapy. She will follow-up with PCP to get referral to GI for colonoscopy in 4-6 weeks. Hemoglobin stable at time of discharge and blood clots and stools had largely resolved. Internal Medicine: Result - Labs CBC & Chem 7: 02/21/19 08:33 02/19/19 13:18 Labs: Short CBC 02/21/19 Range/Units 08:33 WBC 11.0 (4.3-11.1) K/mcL Hgb 11.7 (11.5-15.4) g/dL Hct 35.8 (35.3-44.9) % Plt Count 272 D (140-400) K/mcL - ABG Interpretation ABG results: PT/INR, D-dimer PT 12.7 Seconds (9.4-12.1) H 02/19/19 13:18 Consult Discharge Plan - Plan Instructions: Chronic Hypertension (DC) Referrals: Zander Agustin DO [Primary Care Provider] - (Patient will call for PCP follow up) Jessee Rodney MD [Partnered Physician] - (Web request sent, please call patient ) (3) Hypertension Qualifiers: Hypertension type: essential hypertension Qualified Code(s): I10 - Essential (primary) hypertension
--- NOTE | 2019-02-23 11:18 | Electrocardiograph Report ---
[facility] Test Date: 2019-02-19 Pat Name: Kimberly Howard Department: [id number] Room: [facility] Gender: F Uniform Room Attendant: : 1955 Requested By: [id number] Order Number: [id number] Reading MD: Jose Bhandari Measurements Intervals [place] Rate: 70 P: -10 VT: 172 QRS: 40 QRSD: 95 T: 29 QT: 429 QTc: 463 Interpretive Statements Sinus rhythm wnl Electronically Signed On 02-23-2019 11:17:10 EDT by Jose Bhandari
== END 2019-02-21 10:54 | disposition home or self-care (01) ==
LOC: 3ANU 13:06 → EMEROOARM 13:06 → SUATTDRO 21:41 → 3ANU 22:33
PROVIDERS: ADMIT Internal Medicine; ATTEND Internal Medicine